=== PATIENT | female | born 1955 | race Caucasian/White ===

== ENCOUNTER → 2016-07-07 | Outpatient (CLI) | payer BC ==
--- NOTE | 2016-07-07 15:29 | MY ---
EXAMINATION: Bilateral digital mammography utilizing CAD. HISTORY: Screening exam. Comparison is made to previous studies dated 01/10/2015, 05/08/2013. FINDINGS: Bilateral scattered fibroglandular densities. No suspicious calcifications, masses or ar chitectural distortions. No pathologic appearing lymph nodes, no abnormal skin thickening or nipp le inversion. CAD highlighted regions appear normal at this time. IMPRESSION: BI-RADS category I - negative mammogram. Continued screening according to ACR-ACS gu idelines suggested. THE FALSE-NEGATIVE RATE OF MAMMOGRAM IS APPROXIMATELY 10%. MANAGEMENT OF A PALPABLE ABNORMALITY MUST BE BASED UPON CLINICAL GROUNDS. SENSITIVITY FOR DETECTION OF ABNORMALITIES IN DENSE BREASTS IS LOW. NOTE: A letter will be sent to the patient regarding findings. [facility] [place] -- DANYEL Bosch [phone] - FAX [phone]
== END ==
LOC: MW.MAM 10:59
PROVIDERS: ATTEND Emergency Medicine
DX: Z12.31 Encounter for screening mammogram for malignant neoplasm of breast (principal)
CPT/HCPCS: G0202; G0202-26

== ENCOUNTER → 2016-09-08 | Outpatient (CLI) | payer BC | LOC: MW.CHFP 08:20 | PROVIDERS: ATTEND Emergency Medicine | DX: E11.9 Type 2 diabetes mellitus without complications (principal); I10 Essential (primary) hypertension; E78.00 Pure hypercholesterolemia, unspecified | CPT/HCPCS: 36415; 80053; 80061; 82044; 83036 ==

== ENCOUNTER 2017-05-07 07:02 | Day surgery (SDC) | payer BC ==
[~2017-05-07 07:02] MED LIST: Lactated Ringers 1,000 ML IV SCH
[2017-05-07] MEDS ORDERED: Dexamethasone/Tobramycin 0.1-0.3% Ophth Oint 3.5 GM Tube ONE (07:19)
[2017-05-07] MEDS ORDERED: Bupivacaine 25%/EPINEPHrine/PF 30 ML ONE (07:19)
[2017-05-07] MEDS ORDERED: Octyl 2-Cyanoacrylate 1 Tube ONE (07:19)
[2017-05-07] MEDS ORDERED: Midazolam 1 MG/ML 2 ML SDV ONE (07:33)
[2017-05-07] MEDS ORDERED: Propofol 200 MG/20 ML SDV ONE (07:33)
[2017-05-07] MEDS ORDERED: fentaNYL 100 MCG/2 ML SDV ONE (07:33)
[2017-05-07] MEDS ORDERED: diphenhydrAMINE 50 MG/ML SDV ONE (07:35)
--- NOTE | 2017-05-07 07:43 | PCM.PREANE ---
Preanesthetic Assessment - Anesthesia/Transfusion/Family Hx Anesthesia History: Prior Anesthesia Without Reaction Other Type of Anesthesia Reaction Comment: Claustrophobia, denies any other known problems Family History of Anesthesia Reaction: No Transfusion History: No Prior Transfusion(s) Intubation History: Unknown - Review of Systems General: No Symptoms Pulmonary: No Symptoms Cardiovascular: No Symptoms Gastrointestinal: No Symptoms Neurological: No Symptoms Other: Reports: None - Physical Assessment Height: 1.57 m Weight: 107.048 kg ASA Class: 3 Mental Status: Alert & Oriented x3 Airway Class: Mallampati = 2 Dentition: Reports: Normal Dentition Thyro-Mental Finger Breadths: 3 Mouth Opening Finger Breadths: 2 ROM/Head Extension: Limited/Partial Lungs: Clear to Auscultation, Normal Respiratory Effort Cardiovascular: Regular Rate, Regular Rhythm - Allergies Allergies/Adverse Reactions: Allergies Allergy/AdvReac Type Severity Reaction Status Date / Time amoxicillin [Amoxicillin] Allergy Burning Verified 05/05/17 11:26 Sulfa (Sulfonamide Allergy Difficulty Verified 02/06/15 17:41 Antibiotics) Standing - Blood Blood Available: No - Anesthesia Plan Pre-Op Medication Ordered: None - Acknowledgements Anesthesia Type Planned: MAC (general anesthesia back-up plan) PreAnesthesia Questionnaire HEENT History: Reports: Macular Degeneration Other HEENT History: Legally blind, macular degeneration, cone-guanaco degeneration Cardiovascular History: Reports: High Cholesterol, Hypertension Respiratory History: Reports: Asthma, COPD, Sleep Apnea Other Respiratory History: Sleep apnea with machine, Gastrointestinal History: Reports: GERD Musculoskeletal History: Reports: Fracture, Gout, Other (See Below) Other Musculoskeletal History: "recurrent rt leg chin splint", Neurological History: Reports: Concussion, Migraines Other Neuro History: hx hyperuricemia Psychiatric History: Reports: Anxiety, Depression Endocrine/Metabolic History: Reports: Diabetes, Type II, Hypothyroidism, Obesity /BMI 30+, Osteopenia Dermatologic History: Reports: Eczema, Psoriasis - Past Surgical History Head Surgeries/Procedures: Reports: None HEENT Surgical History: Reports: Cataract Surgery, Eye Surgery GI Surgical History: Reports: Cholecystectomy, Colonoscopy Musculoskeletal Surgical History: Reports: Other (See Below) Other Musculoskeletal Surgeries/Procedures:: surgical tx for wrist fx - SUBSTANCE USE Smoking Status *Q: Former Smoker Recreational Drug Use History: No - HOME MEDS Home Medications: Home Meds Albuterol Sulfate [Proair Hfa] 1 - 2 puff INH ASDIRECTED PRN 02/06/15 [History] Allopurinol [Zyloprim] 300 mg PO DAILY 02/06/15 [History] Levothyroxine Sodium [Levoxyl] 50 mcg PO ACBREAKFAST 02/06/15 [History] Potassium Chloride 20 meq PO BID 02/06/15 [History] Sertraline HCl 50 mg PO DAILY 02/06/15 [History] Simvastatin [Zocor] 10 mg PO BEDTIME 02/06/15 [History] Spironolactone 25 mg PO DAILY 02/06/15 [History] Valsartan 1 tab PO DAILY 02/06/15 [History] metFORMIN HCl [Metformin HCl ER] 1 tab PO ASDIRECTED 02/06/15 [History] Aspirin 81 mg PO BRK 02/08/15 [History] Furosemide [Lasix] 2 tab PO BID 02/08/15 [History] Omeprazole 20 mg PO DAILY 02/08/15 [History] Calcium Carbonate [Calcium] 600 mg PO DAILY 05/05/17 [History] Cholecalciferol (Vitamin D3) [Vitamin D3] 1,000 units PO DAILY 05/05/17 [History ] Clobetasol [Clobetasol 0.05%] 1 applic TOP ASDIRECTED PRN 05/05/17 [History] Insulin Aspart [Novolog Flexpen] 5 - 10 units SUBCUT ASDIRECTED 05/05/17 [ History] Insulin Glargine,Hum.Rec.Anlog [Toujeo Solostar] 43 units SUBCUT ASDIRECTED 07/18 [History] Metoprolol Succinate 25 mg PO DAILY 05/05/17 [History] Montelukast Sodium 10 mg PO DAILY 05/05/17 [History] - CURRENT (IN HOUSE) MEDS Current Meds: Current Medications Bupivacaine HCl/Epinephrine Bitart (Marcaine 0.25%/Epinephrine 1:200,000) 30 ml INJECT ONETIME ONE Stop: 05/07/17 09:01 Clindamycin Phosphate 600 mg/ (Premix) 50 mls @ 150 mls/hr IV ONETIME ONE Stop: 05/07/17 08:19 Lactated Ringer's (Ringers, Lactated) 1,000 mls @ 125 mls/hr IV ASDIRECTED JUDY Discontinued Medications Diphenhydramine HCl (Benadryl) Confirm Administered Dose 50 mg .ROUTE .STK-MED ONE Stop: 05/07/17 07:36 Fentanyl (Sublimaze) Confirm Administered Dose 100 mcg .ROUTE .STK-MED ONE Stop: 05/07/17 07:34 Bupivacaine HCl/Epinephrine Bitart (Sensorc Mpf 0.25%-Epi 1:[id number]) Confirm Administered Dose 30 mls @ as directed .ROUTE .STK-MED ONE Stop: 05/07/17 07:20 Lidocaine HCl (Xylocaine-Mpf 1%) Confirm Administered Dose 5 ml .ROUTE .STK-MED ONE Stop: 05/07/17 07:36 Midazolam HCl (Versed 1 Mg/Ml) Confirm Administered Dose 2 mg .ROUTE .STK-MED ONE Stop: 05/07/17 07:34 Octyl Cyanoacrylate (Dermabond Advance) Confirm Administered Dose 1 applic .ROUTE .STK-MED ONE Stop: 05/07/17 07:20 Propofol (Diprivan 20 Ml) Confirm Administered Dose 200 mg .ROUTE .STK-MED ONE Stop: 05/07/17 07:34 Tobramycin/Dexamethasone (Tobradex Ophth Oint) Confirm Administered Dose 3.5 gm .ROUTE .STK-MED ONE Stop: 05/07/17 07:20
[2017-05-07] MEDS ORDERED: Clindamycin Phosphate in D5W 600 MG in Premix Bag 1 BAG IV ONE ×2 (08:00)
[2017-05-07] MEDS ORDERED: fentaNYL 100 MCG/2 ML SDV IVPUSH PRN (08:21)
[2017-05-07] MEDS ORDERED: Bupivacaine 0.25%/EPINEPHrine 1:200,000 10 ML SDV INJECT ONE (09:00)
[2017-05-07] MEDS ORDERED: Mineral Oil/Petrolatum Ophth Oint 3.5 GM Tube ONE (09:15)
[2017-05-07] MEDS ORDERED: ePHEDrine 50 MG/ML SDV ONE (09:18)
[2017-05-07] MEDS ORDERED: Ondansetron 4 MG/2 ML SDV ONE (09:18)
[2017-05-07 13:39] VITALS: BP 123/61
--- NOTE | 2017-05-07 14:24 | PCM.OPNOTE ---
- General Post-Op/Procedure Note Date of Surgery/Procedure: 05/07/17 Operative Procedure(s): bilateral direct brow lifts and blepharoplasties for excess skin and ptosis Pre Op Diagnosis: dermatochalasis and blepharoptosis Post-Op Diagnosis: Same Anesthesia Technique: General LMA, Local Primary Surgeon: Marii Horne Game Farm Helper: Kiah Cervantes Complications: None Condition: Good Free Text/Narrative:: Intake & Output 05/06/17 05/07/17 05/07/17 23:59 07:59 15:59 Intake Total 1400 Balance 1400
--- NOTE | 2017-05-10 12:08 | OR ---
SURGEON: SACHA GA MD DATE OF PROCEDURE: 05/07/2017 PREOPERATIVE DIAGNOSES: Dermatochalasis and blepharoptosis of upper eyelids. POSTOPERATIVE DIAGNOSES: Dermatochalasis and blepharoptosis of upper eyelids. PROCEDURE: Bilateral direct brow lift and bilateral upper lid blepharoplasty for excess skin causing visual obstruction. AUTO BENCH MECHANIC: CHRIS Wilder. ANESTHESIA: General LMA, local. INDICATIONS: Ms. Cabezas is a 61-year-old female seen today in evaluation for bilateral upper lid excess skin and significant brow ptosis causing more visual obstruction. The patient is already visually impaired, and the additional overhang causes significant difficulties with being able to have light intake for the limited vision that she does still have. We discussed risks and benefits of the procedure, and she would like to proceed. In addition, she has significant skin overhanging causing irritation and rashing in the creases of the upper lids. I do think that this would also help this as well. Risks and benefits were discussed with her including, but not limited to, bleeding, infection, damage to underlying or overlying structures and possible need for future interventions and possible scarring. She was in agreement to proceed. Insurance prior authorization and predetermination were completed. PROCEDURE IN DETAIL: After informed consent was obtained and placed on the chart, the patient was brought to the operating theater and laid in supine position. After adequate general anesthetic was obtained, the area was prepped and draped and a time-out was completed to confirm side and site. Attention was paid first to the brow lift, and 1 cm excision was planned on both sides in a direct brow lift just directly above the lateral eyebrows. Incisions of 6 cm long were marked and planned in an ellipse, and this was excised to allow elevation of the brow. This was closed in an intermediate fashion for a total length of 6 cm bilaterally using deep 3-0 Monocryl stitch and running 4-0 subcuticular for the skin. This was dressed with Steri-Strips. Once adequately completed with the brow lift, then the upper eyelids were marked and then anesthetized. Once adequately marked with more skin being excised on the right then the left, the skin was excised, meticulous hemostasis was obtained, and the open areas were closed using single deep 5-0 Monocryl stitch and a running 6-0 Prolene for the skin. The ends of the sutures were Steri-Stripped and placed medially and laterally to the eye, and the incisions were dressed with TobraDex ointment. TobraDex ointment was placed in the eye to decrease any signs of inflammation there as well. The patient tolerated this well and all counts of needles were correct at the end of the case. FOLLOWUP INSTRUCTIONS: The patient will see us in about 1 week, sooner if any problems, questions, or concerns and will call sooner with any issues. Postop instructions were provided, and pain medication was given as needed. SMITHA / BRITTANY /[id number]
== END 2017-05-07 12:30 | disposition home or self-care (01) ==
LOC: MW.SDS 07:02
PROVIDERS: ATTEND Plastic Surgery
DX: H02.834 Dermatochalasis of left upper eyelid (principal); H02.831 Dermatochalasis of right upper eyelid; H02.403 Unspecified ptosis of bilateral eyelids; H35.53 Other dystrophies primarily involving the sensory retina; J44.9 Chronic obstructive pulmonary disease, unspecified; F32.9 Major depressive disorder, single episode, unspecified; H01.9 Unspecified inflammation of eyelid; K21.9 Gastro-esophageal reflux disease without esophagitis; I10 Essential (primary) hypertension; E78.00 Pure hypercholesterolemia, unspecified; E03.9 Hypothyroidism, unspecified; H35.30 Unspecified macular degeneration; G47.33 Obstructive sleep apnea (adult) (pediatric); E11.65 Type 2 diabetes mellitus with hyperglycemia; E66.9 Obesity, unspecified; Z88.1 Allergy status to other antibiotic agents; Z88.2 Allergy status to sulfonamides; Z79.899 Other long term (current) drug therapy; Z90.49 Acquired absence of other specified parts of digestive tract; Z98.890 Other specified postprocedural states; Z87.891 Personal history of nicotine dependence; Z68.30 Body mass index [BMI] 30.0-30.9, adult; Z79.4 Long term (current) use of insulin
CPT/HCPCS: 15822; 67900; A9270; J1200; J2250; J2405; J3010; J7120; 00103; J2704

== ENCOUNTER 2021-02-17 08:28 | Day surgery (SDC) | payer MEDICARE, BC ==
[~2021-02-17 08:28] MED LIST changes: +Albuterol 0.083% 2.5 MG/3 ML Neb Soln NEB PRN; +HYDROmorphone 1 MG/ML Syringe IVPUSH PRN; +Metoclopramide 10 MG/2 ML SDV IVPUSH PRN; +Morphine 2 MG/ML SYRINGE IVPUSH PRN; +Naloxone 0.4 MG/ML SDV IVPUSH PRN; +Ondansetron 4 MG/2 ML SDV IVPUSH PRN; +fentaNYL 100 MCG/2 ML SDV IVPUSH PRN
[2021-02-17] MEDS ORDERED: Propofol 200 MG/20 ML SDV ONE ×2 (09:24→09:56)
[2021-02-17] MEDS ORDERED: fentaNYL 100 MCG/2 ML SDV ONE (09:25)
[2021-02-17] MEDS ORDERED: Bupivacaine 0.5% 10 ML SDV ONE (09:25)
[2021-02-17] MEDS ORDERED: Midazolam 1 MG/ML 2 ML SDV ONE (09:29)
--- NOTE | 2021-02-17 09:52 | PCM.PREANE ---
Preanesthetic Assessment - Anesthesia/Transfusion/Family Hx Anesthesia History: Prior Anesthesia Without Reaction Other Type of Anesthesia Reaction Comment: Claustrophobia, denies any other known problems Transfusion History: No Prior Transfusion(s) Intubation History: Unknown - Review of Systems General: No Symptoms Pulmonary: No Symptoms Cardiovascular: No Symptoms Gastrointestinal: No Symptoms Neurological: No Symptoms Other: Reports: None - Physical Assessment NPO Status Date: 02/17/21 NPO Status Time: 00:00 Vital Signs: Last Vital Signs Temp 97.3 F 02/17/21 09:00 Pulse 79 02/17/21 09:00 Resp 15 02/17/21 09:00 BP 112/53 L 02/17/21 09:00 Pulse Ox 96 02/17/21 09:00 Height: 5 ft 2 in Weight: 222 lb ASA Class: 3 Mental Status: Alert & Oriented x3 Airway Class: Mallampati = 2 Dentition: Reports: Normal Dentition, Implants Thyro-Mental Finger Breadths: 3 Mouth Opening Finger Breadths: 3 ROM/Head Extension: Full Lungs: Clear to Auscultation, Normal Respiratory Effort Cardiovascular: Regular Rate, Regular Rhythm - Lab Values: Laboratory Last Values POC Glucose 110 mg/dL (70-99) H 02/17/21 09:02 - Allergies Allergies/Adverse Reactions: Allergies Allergy/AdvReac Type Severity Reaction Status Date / Time Sulfa (Sulfonamide Allergy Difficulty Verified 02/11/21 11:51 Antibiotics) Standing - Acknowledgements Anesthesia Type Planned: General Anesthesia Pt an Appropriate Candidate for the Planned Anesthesia: Yes Alternatives and Risks of Anesthesia Discussed w Pt/Guardian: Yes Pt/Guardian Understands and Agrees with Anesthesia Plan: Yes PreAnesthesia Questionnaire HEENT History: Reports: Macular Degeneration Other HEENT History: Legally blind, macular degeneration, cone-guanaco degeneration Cardiovascular History: Reports: High Cholesterol, Hypertension Respiratory History: Reports: Asthma, COPD, Sleep Apnea Other Respiratory History: Sleep apnea with machine, Gastrointestinal History: Reports: GERD Genitourinary History: Reports: Renal Disease Other Genitourinary History: states has 30% kidney function VEGETABLE PACKER History: Reports: None Musculoskeletal History: Reports: Fracture, Gout, Other (See Below) Other Musculoskeletal History: "recurrent rt leg chin splint", Neurological History: Reports: Concussion, Migraines Other Neuro History: hx hyperuricemia Psychiatric History: Reports: Anxiety, Depression Endocrine/Metabolic History: Reports: Diabetes, Type II, Hypothyroidism, Obesity/BMI 30+, Osteopenia Hematologic History: Reports: None Immunologic History: Reports: None Oncologic (Cancer) History: Reports: Uterine Dermatologic History: Reports: Eczema, Psoriasis - Past Surgical History Head Surgeries/Procedures: Reports: None HEENT Surgical History: Reports: Cataract Surgery, Eye Surgery Other HEENT Surgeries/Procedures: has 2 upper and 1 lower dental implant Cardiovascular Surgical History: Reports: Vascular Surgery Other Cardiovascular Surgeries/Procedures: Port-a-Cath placement Respiratory Surgical History: Reports: None GI Surgical History: Reports: Cholecystectomy, Colonoscopy Female Surgical History: Reports: D&C, Hysterectomy, Other (See Below) Other Female Surgeries/Procedures: Pelvic Lymphadenectomy Endocrine Surgical History: Reports: None Neurological Surgical History: Reports: None Musculoskeletal Surgical History: Reports: Other (See Below) Other Musculoskeletal Surgeries/Procedures:: surgical tx for wrist fx Oncologic Surgical History: Reports: Other (See Below) Other Oncologic Surgeries/Procedures: Hysterectomy Dermatological Surgical History: Reports: None - SUBSTANCE USE Tobacco Use Status *Q: Former Tobacco User Tobacco Use Within Last Twelve Months: No Recreational Drug Use History: No - HOME MEDS Home Medications: Home Meds Albuterol Sulfate [Proair Hfa] 1 - 2 puff INH Q4H PRN 02/06/15 [History] Allopurinol [Zyloprim] 150 mg PO DAILY 02/06/15 [History] Levothyroxine Sodium [Levoxyl] 50 mcg PO ACBREAKFAST 02/06/15 [History] Sertraline HCl 50 mg PO DAILY 02/06/15 [History] Simvastatin [Zocor] 10 mg PO BEDTIME 02/06/15 [History] Spironolactone 25 mg PO DAILY 02/06/15 [History] Aspirin 81 mg PO BRK 02/08/15 [History] Furosemide [Lasix] 40 mg PO BID 02/08/15 [History] Calcium Carbonate [Calcium] 600 mg PO DAILY 05/05/17 [History] Cholecalciferol (Vitamin D3) [Vitamin D3] 2,000 units PO DAILY 05/05/17 [History] Insulin Aspart [Novolog Flexpen] 0 units SUBCUT TIDMEALS 05/05/17 [History] Metoprolol Succinate 25 mg PO QAM 05/05/17 [History] Montelukast Sodium 10 mg PO DAILY 05/05/17 [History] Calcitonin ([place]) [Miacalcin Nasal [place]] 1 spray NASLF DAILY 02/11/21 [History] Famotidine [Pepcid] 40 mg PO BID 02/11/21 [History] Fluticasone Propionate [Flonase Allergy Relief] 1 - 2 spray NASBOTH DAILY PRN 02/11/21 [History] Insulin Glargine,Hum.Rec.Anlog [Toujeo Solostar] 64 unit SQ QAM 02/11/21 [History] Olmesartan Medoxomil 20 unit PO DAILY 02/11/21 [History] Semaglutide [Ozempic] 0.5 mg SQ WEEKLY 02/11/21 [History] Triamcinolone Acetonide [Triamcinolone Acetonide 0.1% Crm] 1 dose TOP TID PRN 02/11/21 [History] - CURRENT (IN HOUSE) MEDS Current Meds: Current Medications Albuterol (Albuterol 0.083% 2.5 Mg/3 Ml Neb Soln) 2.5 mg NEB ONETIME PRN PRN Reason: Wheezing Droperidol (Droperidol 5 Mg/2 Ml Sdv) 0.625 mg IVPUSH ONETIME PRN PRN Reason: Nausea/Vomiting Fentanyl (Fentanyl 100 Mcg/2 Ml Sdv) 50 mcg IVPUSH Q5M PRN PRN Reason: Pain (mild 1-3) Hydromorphone HCl (Hydromorphone 1 Mg/Ml Syringe) 1 mg IVPUSH Q10M PRN PRN Reason: Pain (moderate 4-6) Lactated Ringer's (Ringers, Lactated) 1,000 mls @ 125 mls/hr IV ASDIRECTED [facility] Last Admin: 02/17/21 09:10 Dose: 125 mls/hr Documented by: Metoclopramide HCl (Metoclopramide 10 Mg/2 Ml Sdv) 10 mg IVPUSH ONETIME PRN PRN Reason: Nausea/Vomiting Morphine Sulfate (Morphine 2 Mg/Ml Syringe) 2 mg IVPUSH Q10M PRN PRN Reason: Pain (severe 7-10) Naloxone HCl (Naloxone 0.4 Mg/Ml Sdv) 0.1 mg IVPUSH ASDIRECTED PRN PRN Reason: Respiratory Depression Ondansetron HCl (Ondansetron 4 Mg/2 Ml Sdv) 4 mg IVPUSH ONETIME PRN PRN Reason: Nausea/Vomiting Discontinued Medications Bupivacaine HCl (Bupivacaine 0.5% 10 Ml Sdv) Confirm Administered Dose 10 ml .ROUTE .STK-MED ONE Stop: 02/17/21 09:26 Fentanyl (Fentanyl 100 Mcg/2 Ml Sdv) Confirm Administered Dose 100 mcg .ROUTE .STK-MED ONE Stop: 02/17/21 09:26 Lidocaine HCl (Lidocaine 1% 5 Ml Sdv) Confirm Administered Dose 5 ml .ROUTE .STRED - [employer]-MED ONE Stop: 02/17/21 09:25 Lidocaine HCl (Lidocaine 1% 5 Ml Sdv) Confirm Administered Dose 10 ml .ROUTE .STRED - [employer]-MED ONE Stop: 02/17/21 09:26 Midazolam HCl (Midazolam 1 Mg/Ml 2 Ml Sdv) Confirm Administered Dose 2 mg .ROUTE .STK-MED ONE Stop: 02/17/21 09:30 Propofol (Propofol 200 Mg/20 Ml Sdv) Confirm Administered Dose 200 mg .ROUTE .STK-MED ONE Stop: 02/17/21 09:25
--- NOTE | 2021-02-17 10:27 | PCM48HPAN ---
Post Anesthesia Note - EVALUATION WITHIN 48HRS OF ANESTHETIC Vital Signs in Normal Range: Yes Patient Participated in Evaluation: Yes Respiratory Function Stable: Yes Airway Patent: Yes Cardiovascular Function Stable: Yes Hydration Status Stable: Yes Pain Control Satisfactory: Yes Nausea and Vomiting Control Satisfactory: Yes Mental Status Recovered: Yes Vital Signs: Last Vital Signs Temp 97.3 F 02/17/21 09:00 Pulse 79 02/17/21 09:00 Resp 15 02/17/21 09:00 BP 112/53 L 02/17/21 09:00 Pulse Ox 96 02/17/21 09:00
--- NOTE | 2021-02-17 10:27 | PCM.POSTAN ---
POST ANESTHESIA ASSESSMENT - MENTAL STATUS Mental Status: Alert, Oriented - VITAL SIGNS Vital Signs: Last Vital Signs Temp 97.3 F 02/17/21 09:00 Pulse 79 02/17/21 09:00 Resp 15 02/17/21 09:00 BP 112/53 L 02/17/21 09:00 Pulse Ox 96 02/17/21 09:00 - RESPIRATORY Respiratory Status: Respiratory Rate WNL, Airway Patent, O2 Saturation Stable - CARDIOVASCULAR CV Status: Pulse Rate WNL, Blood Pressure Stable - GASTROINTESTINAL GI Status: No Symptoms - POST OP HYDRATION Hydration Status: Adequate & Stable
[2021-02-17] MEDS ORDERED: Acetaminophen/HYDROcodone 325-10 MG Tab PO PRN (10:31)
--- NOTE | 2021-02-17 10:35 | PCM.OPNOTE ---
- General Post-Op/Procedure Note Date of Surgery/Procedure: 02/17/21 Operative Procedure(s): Removal of chemotherapy port Pre Op Diagnosis: History of carcinoma of the uterus. Desire for port removal. Post-Op Diagnosis: History of carcinoma of the uterus. Desire for port removal. Anesthesia Technique: MAC (ASA III) Primary Surgeon: Newton Recio Rope Maker: Evelio Wu Fluid Replacement, Intraop: 600 EBL in mLs: 5 Condition: Good Free Text/Narrative:: DICTATION [id number] CPT CODE [id number]
[2021-02-17] MEDS ORDERED: Lactated Ringers 1,000 ML IV SCH (10:45)
--- NOTE | 2021-02-17 12:42 | OR ---
SURGEON: Newton Recio M.D. DATE OF PROCEDURE: 02/17/2021 OPERATION PERFORMED: Removal of Bard port. PRIMARY SURGEON: Newton Recio M.D. UNIVERSAL GRINDER OPERATOR: Deskidding Machine Operator: CHRIS Kilpatrick student. ANESTHESIA: Local MAC. ASA CLASSIFICATION: III. PREOPERATIVE DIAGNOSES: History of carcinoma of the uterus, desire for port removal. POSTOPERATIVE DIAGNOSES: History of carcinoma of the uterus, desire for port removal. ESTIMATED BLOOD LOSS: 5 mL. INTRAOPERATIVE FLUID REPLACEMENT: 600 mL of crystalloid. DESCRIPTION OF PROCEDURE: The patient was taken to the operating room and positioned on the operating table in the supine position. Time-out was called for appropriate identification of the patient and procedure. The surgical site had been marked prior to the patient entering the operating room. Monitored anesthesia care was provided. The surgical site was prepped with ChloraPrep solution, and sterile drapes were applied. Using the old skin incision, the skin was infiltrated with 10 mL of 1% Xylocaine and 5 mL of 0.5% Marcaine. Skin incision was made and deepened into the subcutaneous tissue, obtaining hemostasis with the use of electrocautery. The dissection was carried down to the port, which was then identified, and sutures were cut mobilizing and removing the port and catheter as one assembly. Pressure was held for a total of 2 minutes, and there was no further bleeding. The subcutaneous tissue was closed with 3-0 Vicryl, and the skin edges were reapproximated with subcuticular 4-0 Monocryl reinforced with half-inch Steri-Strips. Tegaderm was placed as a dressing. Sponge, needle, and instrument counts were all correct. The patient was taken to recovery room in stable condition. SUDHIR / BRITTANY /[id number]
[2021-02-17 13:31] VITALS: BP 112/75; PULSE 74
== END 2021-02-17 12:00 | disposition home or self-care (01) ==
LOC: MW.SDS 08:28
PROVIDERS: ATTEND Surgery
DX: Z45.2 Encounter for adjustment and management of vascular access device (principal); J44.9 Chronic obstructive pulmonary disease, unspecified; N18.30 Chronic kidney disease, stage 3 unspecified; K21.9 Gastro-esophageal reflux disease without esophagitis; I12.9 Hypertensive chronic kidney disease with stage 1 through stage 4 chronic kidney disease, or unspecified chronic kidney disease; E03.9 Hypothyroidism, unspecified; E66.9 Obesity, unspecified; G47.33 Obstructive sleep apnea (adult) (pediatric); E11.9 Type 2 diabetes mellitus without complications; E78.00 Pure hypercholesterolemia, unspecified; F32.9 Major depressive disorder, single episode, unspecified; H35.53 Other dystrophies primarily involving the sensory retina; Z85.42 Personal history of malignant neoplasm of other parts of uterus; Z88.2 Allergy status to sulfonamides; Z79.899 Other long term (current) drug therapy; Z79.82 Long term (current) use of aspirin; Z79.890 Hormone replacement therapy; Z79.4 Long term (current) use of insulin; Z90.49 Acquired absence of other specified parts of digestive tract; Z98.890 Other specified postprocedural states; Z87.891 Personal history of nicotine dependence; Z68.41 Body mass index [BMI] 40.0-44.9, adult
CPT/HCPCS: 36590; 82947; J2250; J2370; J2704; J3010; J3490; J7120; 00400

== ENCOUNTER 2021-08-19 16:08 | Inpatient (IN) | payer MEDICARE, BC ==
[2021-08-19] MEDS ORDERED: Sodium Chloride 0.9% 1,000 ML IV ONE (16:10)
[2021-08-19] MEDS ORDERED: Sodium Chloride 0.9% 10 ML Syringe FLUSH PRN (16:10)
[2021-08-19] MEDS ORDERED: Sodium Chloride 0.9% 2.5 ML Syringe FLUSH PRN (16:10)
[2021-08-19 17:14] LABS: CARBON DIOXIDE,CO2 13.8 mmol/L (21.0-32.0); POTASSIUM,K 4.7 mmol/L (3.5-5.1)
[2021-08-19] MEDS ORDERED: Ondansetron 4 MG/2 ML SDV IVPUSH PRN (22:50)
[2021-08-19] MEDS ORDERED: Glucagon,Human Recombinant 1 MG Vial IM PRN (22:52)
[2021-08-19] MEDS: Heparin Sodium 5,000 Units/ML Vial SUBCUT SCH (23:07)
[2021-08-19] MEDS: Sodium Chloride 0.9% 1,000 ML IV SCH (23:08)
[2021-08-20 06:09] LABS: POTASSIUM,K 4.6 mmol/L (3.5-5.1)
[2021-08-20] MEDS: Levothyroxine 50 MCG Tab PO SCH (06:44)
[2021-08-20] MEDS ORDERED: Insulin Aspart 100 Units/ML 3 ML Pen SUBCUT SCH (07:30)
[2021-08-20] MEDS: Sodium Chloride 0.9% 1,000 ML IV SCH (07:58)
[2021-08-20] MEDS ORDERED: Spironolactone 25 MG Tab PO SCH (09:00)
[2021-08-20] MEDS ORDERED: Sertraline 50 MG Tab PO SCH (09:00)
[2021-08-20] MEDS ORDERED: Insulin Glargine,Human Rec. Analog 100 Units/ML 3 ML Pen SUBCUT SCH (09:00)
[2021-08-20] MEDS ORDERED: Sodium Chloride 0.9% 1,000 ML IV ONE (09:57)
[2021-08-20] MEDS ORDERED: Loperamide 2 MG Cap PO ONE (10:01)
[2021-08-20] MEDS: Montelukast 10 MG Tab PO SCH (10:27)
[2021-08-20] MEDS: Heparin Sodium 5,000 Units/ML Vial SUBCUT SCH ×2 (10:28→22:00)
[2021-08-20] MEDS: Metoprolol Succinate 25 MG Tab.ER PO SCH (10:28)
[2021-08-20] MEDS: Insulin Aspart 100 Units/ML 3 ML Pen SUBCUT SCH ×2 (12:00→21:40)
[2021-08-20] MEDS ORDERED: Dextrose 5%-0.9% NaCl 1,000 ML IV SCH (12:30)
[2021-08-20] MEDS: 50% Dextrose in Water 50 ML Syringe IVPUSH PRN ×2 (14:11→17:49)
[2021-08-20] MEDS: Simvastatin 10 MG Tab PO SCH (21:58)
[2021-08-20] MEDS: Loperamide 2 MG Cap PO PRN (21:59)
[2021-08-20] MEDS: Sertraline 50 MG Tab PO SCH (22:35)
[2021-08-21] MEDS: Insulin Aspart 100 Units/ML 3 ML Pen SUBCUT SCH ×4 (00:40→19:58)
[2021-08-21] MEDS: Sodium Chloride 0.9% 1,000 ML IV SCH ×3 (02:33→19:32)
[2021-08-21 06:08] LABS: CARBON DIOXIDE,CO2 14.7 mmol/L (21.0-32.0); POTASSIUM,K 4.3 mmol/L (3.5-5.1)
[2021-08-21] MEDS: Levothyroxine 50 MCG Tab PO SCH (06:34)
[2021-08-21] MEDS: Montelukast 10 MG Tab PO SCH (09:01)
[2021-08-21] MEDS: Metoprolol Succinate 25 MG Tab.ER PO SCH (09:01)
[2021-08-21] MEDS: Loperamide 2 MG Cap PO PRN ×2 (09:04→17:59)
[2021-08-21] MEDS: Heparin Sodium 5,000 Units/ML Vial SUBCUT SCH (11:39)
[2021-08-21] MEDS: Sertraline 50 MG Tab PO SCH (20:12)
[2021-08-21] MEDS: Simvastatin 10 MG Tab PO SCH (20:13)
[2021-08-21] MEDS ORDERED: Sertraline 50 MG Tab PO SCH (21:00)
[2021-08-21] MEDS ORDERED: Loperamide 2 MG Cap PO PRN (23:47)
[2021-08-22] MEDS: Ciprofloxacin in D5W 400 MG in Premix Bag 1 BAG IV SCH ×4 (00:02→20:11)
[2021-08-22] MEDS: Heparin Sodium 5,000 Units/ML Vial SUBCUT SCH ×3 (00:02→23:27)
[2021-08-22] MEDS: Insulin Aspart 100 Units/ML 3 ML Pen SUBCUT SCH ×4 (00:37→17:42)
[2021-08-22] MEDS: metroNIDAZOLE/Normal Saline 500 MG in Premix Bag 1 BAG IV SCH ×4 (01:13→23:27)
[2021-08-22] MEDS: Nystatin Topical Powder 15 GM Bottle TOP SCH ×3 (05:52→21:54)
[2021-08-22 06:29] LABS: POTASSIUM,K 4.2 mmol/L (3.5-5.1)
[2021-08-22] MEDS: Levothyroxine 75 MCG Tab PO SCH (06:52)
[2021-08-22] MEDS ORDERED: Azithromycin 250 MG Tab PO SCH (07:00)
[2021-08-22] MEDS: Montelukast 10 MG Tab PO SCH (08:49)
[2021-08-22] MEDS: Sodium Chloride 0.9% 1,000 ML IV SCH (08:58)
[2021-08-22] MEDS ORDERED: Sodium Bicarbonate 8.4% 50 MEQ/50 ML Syringe IVPUSH ONE (10:01)
[2021-08-22] MEDS ORDERED: Sodium Bicarbonate 50 MEQ in Dextrose 5% in Water 250 ML IV ONE ×2 (10:30)
[2021-08-22] MEDS ORDERED: SODIUM BICARBONATE IV ONE ×2 (10:30)
[2021-08-22] MEDS ORDERED: WATER IV ONE ×2 (10:30)
[2021-08-22] MEDS: Acidophilus with Citrus Pectin/L.acidophilus Tab PO SCH ×2 (10:30→20:10)
[2021-08-22] MEDS ORDERED: DEXTROSE 5% IV ONE ×2 (10:30)
[2021-08-22] MEDS: Dextrose 5%-Lactated Ringers 1,000 ML IV SCH (10:45)
[2021-08-22] MEDS: Loperamide 2 MG Cap PO PRN (18:13)
[2021-08-22] MEDS: Sertraline 50 MG Tab PO SCH (20:10)
[2021-08-22] MEDS: Simvastatin 10 MG Tab PO SCH (20:10)
[2021-08-22] MEDS: Insulin Glargine,Human Rec. Analog 100 Units/ML 3 ML Pen SUBCUT SCH (20:23)
[2021-08-23] MEDS: Insulin Aspart 100 Units/ML 3 ML Pen SUBCUT SCH ×4 (00:24→18:16)
[2021-08-23] MEDS: Dextrose 5%-Lactated Ringers 1,000 ML IV SCH ×5 (03:52→19:22)
[2021-08-23] MEDS: Nystatin Topical Powder 15 GM Bottle TOP SCH ×3 (05:40→21:05)
[2021-08-23] MEDS: Levothyroxine 75 MCG Tab PO SCH (06:32)
[2021-08-23 06:33] LABS: CARBON DIOXIDE,CO2 18.1 mmol/L (21.0-32.0); POTASSIUM,K 3.9 mmol/L (3.5-5.1)
[2021-08-23] MEDS: metroNIDAZOLE/Normal Saline 500 MG in Premix Bag 1 BAG IV SCH ×2 (08:21→16:00)
[2021-08-23] MEDS: Montelukast 10 MG Tab PO SCH (08:23)
[2021-08-23] MEDS: Acidophilus with Citrus Pectin/L.acidophilus Tab PO SCH ×2 (08:23→20:51)
[2021-08-23] MEDS: Loperamide 2 MG Cap PO PRN ×2 (09:39→10:12)
[2021-08-23] MEDS: Heparin Sodium 5,000 Units/ML Vial SUBCUT SCH (11:57)
[2021-08-23] MEDS ORDERED: Magnesium Sulfate/Water 2 GM in Premix Bag 1 BAG IV ONE (12:45)
[2021-08-23] MEDS: Atropine/Diphenoxylate 0.025-2.5 MG Tab PO PRN (15:23)
[2021-08-23] MEDS: Simvastatin 10 MG Tab PO SCH (20:52)
[2021-08-23] MEDS: Ciprofloxacin in D5W 400 MG in Premix Bag 1 BAG IV SCH ×2 (20:53)
[2021-08-23] MEDS: Sertraline 50 MG Tab PO SCH (20:53)
[2021-08-23] MEDS: Insulin Glargine,Human Rec. Analog 100 Units/ML 3 ML Pen SUBCUT SCH (20:54)
[2021-08-24] MEDS: Heparin Sodium 5,000 Units/ML Vial SUBCUT SCH ×3 (00:31→23:10)
[2021-08-24] MEDS: Insulin Aspart 100 Units/ML 3 ML Pen SUBCUT SCH ×4 (00:32→17:26)
[2021-08-24] MEDS: metroNIDAZOLE/Normal Saline 500 MG in Premix Bag 1 BAG IV SCH ×4 (00:32→23:16)
[2021-08-24] MEDS: Dextrose 5%-Lactated Ringers 1,000 ML IV SCH ×3 (02:15→23:10)
[2021-08-24] MEDS: Atropine/Diphenoxylate 0.025-2.5 MG Tab PO PRN ×3 (04:08→21:25)
[2021-08-24 06:44] LABS: CARBON DIOXIDE,CO2 19.1 mmol/L (21.0-32.0); POTASSIUM,K 3.9 mmol/L (3.5-5.1)
[2021-08-24] MEDS: Levothyroxine 75 MCG Tab PO SCH (08:32)
[2021-08-24] MEDS: Montelukast 10 MG Tab PO SCH (08:32)
[2021-08-24] MEDS: Acidophilus with Citrus Pectin/L.acidophilus Tab PO SCH ×2 (08:32→21:12)
[2021-08-24] MEDS: Nystatin Topical Powder 15 GM Bottle TOP SCH ×3 (08:45→21:16)
[2021-08-24] MEDS: Loperamide 2 MG Cap PO PRN (09:36)
[2021-08-24] MEDS: Allopurinol 300 MG Tab PO SCH (15:53)
[2021-08-24] MEDS: Sertraline 50 MG Tab PO SCH (21:12)
[2021-08-24] MEDS: Simvastatin 10 MG Tab PO SCH (21:12)
[2021-08-24] MEDS: Ciprofloxacin in D5W 400 MG in Premix Bag 1 BAG IV SCH ×2 (21:13)
[2021-08-24] MEDS: Insulin Glargine,Human Rec. Analog 100 Units/ML 3 ML Pen SUBCUT SCH (21:14)
[2021-08-24] MEDS ORDERED: Acetaminophen 325 MG Tab PO PRN (22:18)
[2021-08-25] MEDS: Levothyroxine 75 MCG Tab PO SCH (06:43)
[2021-08-25] MEDS: Nystatin Topical Powder 15 GM Bottle TOP SCH (06:45)
[2021-08-25] MEDS: Insulin Aspart 100 Units/ML 3 ML Pen SUBCUT SCH (06:49)
[2021-08-25 07:15] LABS: CARBON DIOXIDE,CO2 22.9 mmol/L (21.0-32.0); POTASSIUM,K 3.8 mmol/L (3.5-5.1)
[2021-08-25] MEDS: metroNIDAZOLE/Normal Saline 500 MG in Premix Bag 1 BAG IV SCH (08:05)
[2021-08-25] MEDS ORDERED: Magnesium Sulfate/Water 2 GM in Premix Bag 1 BAG IV ONE (08:39)
[2021-08-25] MEDS: Heparin Sodium 5,000 Units/ML Vial SUBCUT SCH (09:59)
[2021-08-25] MEDS: Allopurinol 300 MG Tab PO SCH (09:59)
[2021-08-25] MEDS: Acidophilus with Citrus Pectin/L.acidophilus Tab PO SCH (10:00)
[2021-08-25] MEDS: Montelukast 10 MG Tab PO SCH (10:00)
[2021-08-25] MEDS ORDERED: Phosphorus #1 250 MG Tab PO ONE (12:45)
[2021-08-25 15:49] VITALS: BP 123/53; PULSE 83
== END 2021-08-25 14:45 | disposition home or self-care (01) | DRG 683 ==
LOC: MW.ED 16:08 → MW.MS 17:45 → UNDOADMIN 18:03 → MW.ICU 18:03 → MW.MS 18:20
PROVIDERS: ADMIT Internal Medicine; ATTEND Internal Medicine
DX: N17.9 Acute kidney failure, unspecified (principal); E87.1 Hypo-osmolality and hyponatremia; E87.2 Acidosis; Z68.41 Body mass index [BMI] 40.0-44.9, adult; H35.30 Unspecified macular degeneration; R19.7 Diarrhea, unspecified; N28.9 Disorder of kidney and ureter, unspecified; I10 Essential (primary) hypertension; H35.52 Pigmentary retinal dystrophy; E03.9 Hypothyroidism, unspecified; Z20.822 Contact with and (suspected) exposure to COVID-19; I12.9 Hypertensive chronic kidney disease with stage 1 through stage 4 chronic kidney disease, or unspecified chronic kidney disease; E86.0 Dehydration; N18.9 Chronic kidney disease, unspecified; E11.22 Type 2 diabetes mellitus with diabetic chronic kidney disease; E78.00 Pure hypercholesterolemia, unspecified; J44.9 Chronic obstructive pulmonary disease, unspecified; G47.30 Sleep apnea, unspecified; K21.9 Gastro-esophageal reflux disease without esophagitis; M10.9 Gout, unspecified; G43.909 Migraine, unspecified, not intractable, without status migrainosus; F41.9 Anxiety disorder, unspecified; F32.A Depression, unspecified; E66.9 Obesity, unspecified; Z86.19 Personal history of other infectious and parasitic diseases; Z98.49 Cataract extraction status, unspecified eye; Z79.82 Long term (current) use of aspirin; Z79.899 Other long term (current) drug therapy; Z79.52 Long term (current) use of systemic steroids; Z88.2 Allergy status to sulfonamides; Z79.890 Hormone replacement therapy; Z79.4 Long term (current) use of insulin; Z90.49 Acquired absence of other specified parts of digestive tract; Z90.710 Acquired absence of both cervix and uterus; Z85.42 Personal history of malignant neoplasm of other parts of uterus; Z92.21 Personal history of antineoplastic chemotherapy
CPT/HCPCS: 36415; 80053; 83735; 85025; 99285; J3490; J7030; U0002; 51701; 74176; 74176-26; 80048; 81003; 82947; 83605; 84100; 87045; 87046; 87324; 87449; 87899; 99284; A9270-GY; J0744; J1644; J1815-GY; J2405; J3475; J7042; J7060; J7121

== ENCOUNTER 2021-12-19 06:30 | Day surgery (SDC) | payer MEDICARE, BC ==
[~2021-12-19 06:30] MED LIST changes: -Albuterol 0.083% 2.5 MG/3 ML Neb Soln NEB PRN; -HYDROmorphone 1 MG/ML Syringe IVPUSH PRN; -Metoclopramide 10 MG/2 ML SDV IVPUSH PRN; -Morphine 2 MG/ML SYRINGE IVPUSH PRN; -Naloxone 0.4 MG/ML SDV IVPUSH PRN; -Ondansetron 4 MG/2 ML SDV IVPUSH PRN; -fentaNYL 100 MCG/2 ML SDV IVPUSH PRN
[2021-12-19] MEDS ORDERED: fentaNYL 100 MCG/2 ML SDV ONE (07:33)
[2021-12-19] MEDS ORDERED: Propofol 200 MG/20 ML SDV ONE (07:33)
[2021-12-19 10:03] VITALS: BP 110/49; PULSE 66
== END 2021-12-19 09:22 | disposition home or self-care (01) ==
LOC: MW.SDS 06:30
PROVIDERS: ATTEND Surgery
DX: K52.9 Noninfective gastroenteritis and colitis, unspecified (principal); I12.9 Hypertensive chronic kidney disease with stage 1 through stage 4 chronic kidney disease, or unspecified chronic kidney disease; E11.22 Type 2 diabetes mellitus with diabetic chronic kidney disease; N18.30 Chronic kidney disease, stage 3 unspecified; E78.00 Pure hypercholesterolemia, unspecified; E03.9 Hypothyroidism, unspecified; K21.9 Gastro-esophageal reflux disease without esophagitis; F32.A Depression, unspecified; J44.9 Chronic obstructive pulmonary disease, unspecified; E66.01 Morbid (severe) obesity due to excess calories; G47.33 Obstructive sleep apnea (adult) (pediatric); M85.80 Other specified disorders of bone density and structure, unspecified site; N17.9 Acute kidney failure, unspecified; Z79.4 Long term (current) use of insulin; Z79.890 Hormone replacement therapy; Z79.82 Long term (current) use of aspirin; Z79.84 Long term (current) use of oral hypoglycemic drugs; Z79.899 Other long term (current) drug therapy; Z79.52 Long term (current) use of systemic steroids; Z79.51 Long term (current) use of inhaled steroids; Z90.49 Acquired absence of other specified parts of digestive tract; Z98.890 Other specified postprocedural states; Z90.710 Acquired absence of both cervix and uterus; Z87.891 Personal history of nicotine dependence; Z68.38 Body mass index [BMI] 38.0-38.9, adult; Z88.2 Allergy status to sulfonamides
CPT/HCPCS: 45380; 82947; J2704; J3010; J7120; 00811; 88305